=== PATIENT | female | born 1995 | race Caucasian/White ===

== ENCOUNTER 2020-09-03 10:10 | Outpatient (CLI) | payer MEDICAID, SELFPAY ==
[2020-09-03] VITALS (18 sets, daily range): BP systolic 101–124; BP diastolic 57–80; PULSE 52–76; RESP 15; TEMP 36.6; BMI 26.7
--- NOTE | 2020-09-03 10:49 | USR_ITS ---
PROCEDURE INFORMATION: Exam: US , Limited Exam date and time: 09/03/2020 10:55 AM Age: 25 years old Clinical indication: Lmp or gestational age (in weeks): 36 weeks 6 days; Other: Vaginal bleeding/ cramping; ; Additional info: Vaginal bleeding/cramping TECHNIQUE: Imaging protocol: Real-time ultrasound of the maternal uterus with image documentation. Exam focused on the clinical indication. COMPARISON: US OB >= 14 weeks fetus [id number] 05/09/2020 10:19 AM FINDINGS: Gestation: Single viable intrauterine fetus in the vertex presentation. heart rate: heart rate equals 131 BPM. Placenta: A grade 2 placenta is located anteriorly with no evidence of abruption or previa. Amniotic fluid: The amniotic fluid volume is normal for the gestational age. MATERNAL: Cervix: The cervix is closed and measures 4.3 cm in length. US/US OB limited [id number] IMPRESSION: 1. Single viable intrauterine fetus in the vertex position. 2. Grade 2 placenta located anteriorly with no evidence of previa or abruption. 3. Normal amniotic fluid volume.
[2020-09-03 13:59] LABS: Add Urine Microscopic? YES; Bilirubin Urine Neg (Negative); Blood Urine 3+ (Negative); Glucose Urine UA Norm (Normal); Ketones Urine Negative (Negative); Leukocyte Esterase Urine 1+ (Negative); Nitrate Urine Negative (Negative); Protein Urine 1+ (Negative); Specific Gravity, Urine 1.005 (1.005-1.030); Urine Appearance Bloody (CLEAR); Urine Color Red (Yellow); Urobilinogen Urine Norm (Negative); pH Urine 7 (5-7)
[2020-09-03 14:00] LABS: RBC Urine TOO NUMEROUS TO CNT /hpf (0-2)
[2020-09-03 14:03] LABS: Bacteria Urine TRACE /hpf; Mucus Urine 1+ /hpf; Squamous Epithelial Cell Urine 0-4 /hpf (0-5)
[2020-09-03 14:04] LABS: Add Urine Culture? Yes
--- NOTE | 2020-09-03 14:58 | PM.HP ---
Providers/Chief Complaint Primary Care Provider: Tiburcio Lee MD Chief Complaint: Bleeding & Cramping History of Present Illness Sivan Lomas is a 25 year old female who is a 6 para 2 with an EDC of 09/25/2020. This patient has had a uneventful course up until this time. Last night, she began cramping a little bit . And this morning when she was up standing she felt something running down her leg and found herself to be bleeding slightly. She then came to [facility] OB department where she was evaluated. She has a history of a low-lying placenta in early ultrasound therefore an ultrasound was done. The ultrasound was noted to have no previa and no obvious bleeding from the placenta. The placenta is a stage II placenta. Urinalysis was pretty nonspecific except for a large amount of blood. It was not a catheterized urine specimen. General vaginal exam demonstrated her to be closed and -2 station but definitely blood in the vaginal vault. There has been no heavy bleeding and no clots passed. Review of Systems Const: Denies: fever(s), chills, change in appetite or fatigue ENMT: Denies: throat pain, dry mouth or nasal congestion Card: Denies: chest pain, palpitations, irregular heart rhythm or edema Resp: Denies: dyspnea, productive cough or non-productive cough GI: Denies: abdominal pain, nausea or vomiting : Reports: vaginal bleeding and pelvic pain (A mild pressure or discomfort in the suprapubic area.); Denies: flank pain, difficulty voiding or dysuria Musc: Denies: neck pain, back pain or extremity pain Neuro: Denies: headache(s), weakness in extremities or sensory changes Psych: Denies: anxiety or depression PFSH Acute Female Reproductive History: : 6 Vitals/I&O/Wt Last Vital Signs Pulse 59 L 09/03/20 14:26 BP 110/76 09/03/20 14:26 Weight last 48 hrs Weight 70.76 kg Physical Exam Const: COMMON NORMALS: no acute distress, average body habitus and healthy appearing GENERAL APPEARANCE: cooperative and comfortable HENMT: COMMON NORMALS: moist oral mucous membranes Neck/C-Spine: COMMON NORMALS: full ROM, no lymphadenopathy and supple Resp: COMMON NORMALS: normal respiratory effort, No retractions, No use of accessory muscles and clear to auscultation bilaterally Cardio: COMMON NORMALS: regular rate and regular rhythm GI: COMMON NORMALS: Normal to inspection, nondistended, normoactive bowel sounds present, Soft to palpation and non-tender PALPATION: Yes Tenderness to palpation present (GI) Details: other (Mild tenderness in the suprapubic area to palpation.) : SPECULUM EXAM - CERVIX: Yes Cervical os closed (Per nurse examination.) Back/Pelvis: COMMON NORMALS: no CVA tenderness Extremity: COMMON NORMALS: normal to inspection, full ROM, capillary refill normal and no pedal edema Neuro: COMMON NORMALS: CN's II-XII intact bilaterally, moves all extremities, no focal motor deficits and no sensory deficits noted SENSORIUM/ORIENTATION: Yes alert, Yes oriented to person, Yes oriented to place and Yes oriented to time Psych: COMMON NORMALS: mental status grossly normal, Normal thought process present, cooperative and normal affect Skin: COMMON NORMALS: no rashes or lesions noted A&P Assessment and plan (1) Vaginal bleeding during , antepartum: Patient is continue to bleed a small amount. She has some suprapubic pressure and is chico every 4 to 6 minutes and feeling most of them now. There is a possibility that this is early labor. She does have a history of 2 previous babies born just a few weeks early. However, we are still unsure as to whether this is early labor or another cause for bleeding. For this reason, we will keep the patient in the hospital at this time for monitoring closely. If the bleeding increases in amount and/or she has a lot more pain in her pelvis will probably proceed with section. We will go ahead and check a CBC with a metabolic panel. She is known to be A negative blood type. If the bleeding slows or clears, will probably allow her to go home if everything is still stable and the baby looks good. Status: Acute (2) uterine contractions: She is 36 weeks and 6 days gestation. At this time, we will do nothing to stop the labor if she is an active labor. Status: Acute Attestations Medical Necessity Statement*: This patient has an approximately 37-week intrauterine and is bleeding vaginally. This will require at least an observation stay to monitor her for problems such as early labor versus partial abruption causing labor. She will require monitoring until this resolves or if she delivers the baby. Time Spent in Patient Care: 16 - 35 minutes Coding Level of Care Code Acute Mailroom Manager for Chg Fwd Diagnoses Vaginal bleeding during , antepartum O46.90 uterine contractions O47.9
[2020-09-03 16:16] LABS: Basophils # 0.1 10^3/uL (0.0-0.1); Basophils % 0.3 %; Eosinophils # 0.2 10^3/uL (0.0-0.8); Eosinophils % 1.1 %; Hematocrit 28.4 % (37.0-47.0); Hemoglobin 9.4 g/dL (11.5-15.3); Lymphocytes # 2.6 10^3/uL (0.8-4.8); Mean Corpuscular HGB Conc 33.1 g/dL (30.0-36.0); Mean Corpuscular Hemoglobin 30.6 pg (28.0-34.0); Mean Corpuscular Volume 92.5 fL (81-99); Mean Platelet Volume 10.8 fL (7.4-10.4); Monocytes # 0.6 10^3/uL (0.2-0.9); Monocytes % 4.1 %; Neutrophils # 10.98 10^3/uL (1.8-7.7); Neutrophils % 76.2 %; Nucleated Red Blood Cells % 0 %; Platelet Count 259 10^3/cmm (130-400); Red Blood Count 3.07 10^6/uL (4.1-5.3); Red Cell Distribution Width 12.8 % (12.1-15.1); White Blood Count 14.4 10^3/uL (4.0-10.0)
[2020-09-03 16:33] LABS: Alanine Aminotransferase < 5 U/L (0-33); Albumin Level 3.4 g/dL (3.5-5.2); Alkaline Phosphatase 112 IU/L (35-105); Anion Gap 15.6 (5-19); Aspartate Amino Transferase 17 U/L (0-32); Blood Urea Nitrogen 5 mg/dL (6-20); Calcium 7.7 mg/dL (8.5-10.5); Carbon Dioxide 21 mmol/L (22-29); Chloride 105 mmol/L (98-107); Glomerular Filtration Rate 266.9 mL/min (90-130); Glucose 67 mg/dL (65-115); Osmolality Calculated 282 mOsm/kg (285-295); Potassium 3.6 mmol/L (3.5-5.1); Sodium 138 mmol/L (136-145); Total Bilirubin 0.5 mg/dL (0.15-1.2); Total Protein 6.4 g/dL (6.6-8.7)
[2020-09-03] MEDS: sertraline 50 mg Tablet 25 MG PO (18:54)
== END 2020-09-03 18:58 | disposition home or self-care (01) ==
LOC: OPOB 10:16 → OBGYN 10:16
PROVIDERS: Family Medicine; PCP Family Medicine; Visit Provider Family Medicine
DX: O46.93 Antepartum hemorrhage, unspecified, third trimester (principal); Z3A.36 36 weeks gestation of pregnancy; O47.9 False labor, unspecified
CPT/HCPCS: 36415; 59025; 76815; 80053; 81001; 85025; 87086; 96360; 99211

== ENCOUNTER 2020-09-07 01:50 | Inpatient (IN) | payer MEDICAID, SELFPAY ==
[2020-09-07] VITALS (66 sets, daily range): BP systolic 100–135; BP diastolic 55–88; PULSE 51–99; RESP 15–17; TEMP 36.5–36.8; O2SAT 91–100; BMI 26.4
[2020-09-07] MEDS: lactated ringers 1,000 ML 999 ML IV ×2 (02:10→03:15)
[2020-09-07 02:20] LABS: Basophils % 0.3 %; Eosinophils # 0.2 10^3/uL (0.0-0.8); Eosinophils % 1.6 %; Hematocrit 27.5 % (37.0-47.0); Lymphocytes # 2.2 10^3/uL (0.8-4.8); Lymphocytes % 19.5 %; Mean Corpuscular HGB Conc 32.7 g/dL (30.0-36.0); Mean Corpuscular Hemoglobin 30.4 pg (28.0-34.0); Mean Corpuscular Volume 92.9 fL (81-99); Monocytes # 0.5 10^3/uL (0.2-0.9); Monocytes % 4.5 %; Neutrophils # 8.45 10^3/uL (1.8-7.7); Neutrophils % 73.8 %; Nucleated Red Blood Cells % 0 %; Platelet Count 265 10^3/cmm (130-400); Red Blood Count 2.96 10^6/uL (4.1-5.3); Red Cell Distribution Width 12.6 % (12.1-15.1); White Blood Count 11.5 10^3/uL (4.0-10.0)
--- NOTE | 2020-09-07 03:55 | P.ANESASSM_ITS ---
Pre-Anesthetic Assessment Pre-Anesthetic Assessment: Height/Weight: Height 1.63 m Weight 69.853 kg Temp Pulse Resp BP Pulse Ox 97.7 F 62 15 118/81 100 09/07/20 01:34 09/07/20 03:52 09/07/20 02:00 09/07/20 03:51 09/07/20 03:52 Preop Diagnosis: Active Labor Proposed Procedure: Epidural Was Beta Arturo taken within 24 hours: N/A Was Clonidine taken within 24 hours: N/A Social: Social History: No alcohol and No tobacco Exam: Pre-Anes Outpt Exam: alert, oriented x 3 and clear to auscultation bilaterally Airway: Submandibular: WNL Cervical ROM: WNL MP: 2 History/ROS: No significant history except as noted Pulmonary: Pulmonary: None reported CV/HEM: CV/HEM: None reported : : None reported Hepatic: Hepatic: None reported GI: GI: None reported Metabolic: Metabolic: None reported Musc/skel: Musc/skel: None reported Neuropsych: Neuropsych: None reported Anesthetic Plan: ASA status: 2 Anesthesia: Eval. for regional block Risk of > 500 ml blood loss (7ml/kg in children): No Meds/Allergies Current Medications: Current Medications Generic Name Dose Route Start Last Admin Trade Name Freq PRN Reason Stop Dose Admin Lactated Ringer's 1,000 mls @ 999 m ls/hr 09/07/20 01:53 09/07/20 02:10 Lactated Ringers IV 999 mls/hr .Q1H1M PRN Administration See label comment s PFSH Anesthesia Female Reproductive History: : 6 Data Anesthesia CBC & Chem 7: 09/07/20 02:00 Other Labs: Laboratory Results - last 48 hr 09/07/20 02:00 WBC 11.5 H RBC 2.96 L Hgb 9.0 L Hct 27.5 L MCV 92.9 MCH 30.4 MCHC 32.7 RDW 12.6 Plt Count 265 MPV 11.0 H Neut % (Auto) 73.8 Lymph % (Auto) 19.5 Ashley % (Auto) 4.5 Eos % (Auto) 1.6 Baso % (Auto) 0.3 Neut # (Auto) 8.45 H Lymph # (Auto) 2.2 Ashley # (Auto) 0.5 Eos # (Auto) 0.2 Baso # (Auto) 0.0 Nucleated RBC % (auto) 0 Nucleated RBCs # 0.0 Cardiac Studies: No Data to Display
--- NOTE | 2020-09-07 03:58 | ANES.PROC ---
Anesthesia Procedures Procedure/Date: 09/07/20 Epidural: Time Out Performed: Yes Consents Signed: Procedure Consent Consent: requested by attending/covering physician, from patient, risks and benefits reviewed and patient agrees to proceed Lumbar Level: L2-L3 Epidural position: sitting Epidural procedure: sterile prep of area, 1% lidocaine to numb the area, negative for paresthesia passed, test dose given, 1.5% xylocaine 1:200k epi, 0.2% Ropivacaine bolus ml (5ml), no systemic response, sterile dressing applied, L.U.D. no apparent complications and 0.2% Ropiavacaine @ mls/hr (11) Additional Comments: VIN at 6 cm catheter threaded to 12
[2020-09-07] MEDS: dextrose 5%-lactated ringers 1,000 ML 125 ML IV (05:00)
--- NOTE | 2020-09-07 07:13 | P.PCNOB_ITS ---
Delivery Note: Date of delivery: September 07, 2020 Pre-delivery diagnoses: 25-year-old 6 para 2-0-4-2 at 37 weeks estimated gestational age presenting in active labor Post-delivery diagnoses: Status post spontaneous vaginal delivery Procedure: Spontaneous vaginal delivery Op report anesthesia: Epidural Delivering Physician: Tiburcio Lee Estimated blood loss (mL): 150 Pre-Delivery Course: The patient arrived to the hospital the morning of delivery. She was an active labor. Her membrane was intact. An epidural was placed. An amniotomy was performed. She then progressed to complete about 20 minutes after the amniotomy. heart tones were reassuring throughout. The mother had an unremarkable . Her blood type was A-. She was GBS negative. Covid status is unknown. Hepatitis B was negative. The remainder of her labs were within normal limits. Delivery: DELIVERY: The patient progressed to complete without difficulty. She delivered a male with a weight of 6 pounds 5 ounces with Apgars of 9, 9. The baby was delivered from the YOANDY position and placed on the mother's abdomen. The cord was then clamped and cut 1 minute after delivery. There was no nuchal cord. There was no meconium. The placenta and 3 vessel cord were delivered intact shortly thereafter. The perineum and vaginal vault were carefully examined. No lacerations were noted. Both the mother and the baby were in stable condition. Post-Delivery Status: Good Coding Level of Care Code Acute Drophammer Operator for Alex Flower
[2020-09-07] MEDS: sertraline 50 mg Tablet 25 MG PO (09:38)
[2020-09-07] MEDS: docusate sodium 100 mg Capsule PO ×2 (09:38→17:34)
[2020-09-07] MEDS: prenatal vitamin Capsule 1 CAP PO (09:38)
[2020-09-07] MEDS: ibuprofen 800 mg tablet PO ×3 (09:38→21:21)
--- NOTE | 2020-09-07 10:39 | PC.NURSE ---
Pt up to bathroom, large void. Pt then to shower for michael care. Clean pad/gown provided. Bed linens changed. Pt back into bed. Fresh ice water and snacks provided.
[2020-09-07] MEDS: HYDROcodone-acetaminophen 5-325 mg Tablet PO (16:06)
[2020-09-08 00:58] LABS: Hematocrit 23.9 % (37.0-47.0); Hemoglobin 7.8 g/dL (11.5-15.3); Mean Corpuscular HGB Conc 32.6 g/dL (30.0-36.0); Mean Corpuscular Hemoglobin 30.6 pg (28.0-34.0); Mean Corpuscular Volume 93.7 fL (81-99); Mean Platelet Volume 10.6 fL (7.4-10.4); Platelet Count 256 10^3/cmm (130-400); Red Blood Count 2.55 10^6/uL (4.1-5.3); Red Cell Distribution Width 12.8 % (12.1-15.1); White Blood Count 12.5 10^3/uL (4.0-10.0)
[2020-09-08 06:19] VITALS: BP 119/82; PULSE 61
[2020-09-08] MEDS: HYDROcodone-acetaminophen 5-325 mg Tablet PO (07:36)
[2020-09-08] MEDS: ibuprofen 800 mg tablet PO (08:54)
[2020-09-08] MEDS: prenatal vitamin Capsule 1 CAP PO (08:54)
[2020-09-08] MEDS: docusate sodium 100 mg Capsule PO (08:55)
[2020-09-08 10:17] VITALS: BP 138/78; PULSE 65
[2020-09-08 10:18] VITALS: RESP 16; TEMP 36.7; O2SAT 99
--- NOTE | 2020-09-08 18:11 | P.DS_ITS ---
Discharge Providers DIRECTOR OF PREMIUM SEAT SALES Date of Admission: 09/07/20 01:50 Date of Discharge: 09/08/20 Attending Provider at Admission: Tiburcio Lee MD Attending Provider at Discharge: Tiburcio Lee MD Primary Care Provider: Tiburcio Lee MD Diagnoses at Discharge Discharge Diagnosis (1) 37 weeks gestation of : Status: Acute (2) Spontaneous vaginal delivery: Status: Acute Reason for Visit Reason for Visit: Contractions Hospital Course Hospital Course The patient presented for an epidural was placed. An amniotomy was performed. She then progressed to complete and had an unremarkable delivery of a healthy appearing male infant. Her course was unremarkable. Her bleeding was within normal limits. She bottle-fed her infant. There were no concerns. Information Peripartum Data: Infant Delivery Method: Vaginal Physical Exam Narrative: EXAM NARRATIVE: The patient is alert. She appears comfortable. Her heart has a regular rate and rhythm with no murmurs appreciated. Lungs are clear to auscultation bilaterally. Her fundus is firm and below the umbilicus. Urinary Catheter Management^: Cote Latex: Cath Placed During This Visit: yes, but has since been removed by the nurse Reason for Continuing Indwelling Catheter: Other Urinary Catheter Date of Insertion: 09/07/20 Urinary Catheter Time of Insertion: 04:43 Date Urinary Catheter Removed: 09/07/20 Time Urinary Catheter Discontinued: 06:56 Discharge Data Data Completed and Pending: Labs from last 24 hours 09/08/20 00:45 WBC 12.5 H RBC 2.55 L Hgb 7.8 L Hct 23.9 L MCV 93.7 MCH 30.6 MCHC 32.6 RDW 12.8 Plt Count 256 MPV 10.6 H Vitals: Last Vital Signs Temp 98.1 F 09/08/20 10:18 Pulse 65 09/08/20 10:17 Resp 16 09/08/20 10:18 BP 138/78 09/08/20 10:17 Pulse Ox 99 09/08/20 10:18 Discharge Plan Discharge Patient Disposition: Home Condition: Stable Prescriptions: New ibuprofen 800 mg Tablet 800 mg PO TID Qty: 30 RF: 0 Continued Zoloft 25 mg Tablet 25 mg PO DAILY RF: 0 + DHA 28 mg iron- 975 mcg-200 mg Combo Pack 1 pkg PO DAILY RF: 0 Discharge Orders: Discharge Order (Routine); Ordered 09/08/20 Ordered By: Tiburcio Lee Referrals: Edwin Cobian MD [Physician] - 10/03/20 2:45 pm (Tubal ligation 6 weeks ) Tiburcio Lee MD [Primary Care Provider] - 10/20/20 1:30 pm Discharge Diet: Usual diet Discharge Activity: Limit activity as instructed Patient Instructions: Bottle Feeding Your Baby (GEN), Vaginal Delivery (DC), Pre-eclampsia and Eclampsia (GEN), OB Discharge Report, OB Food/Drug Interaction Guide, Opioid Safety, Abnormal Bleeding, Depression Discharge Attestations DIRECTOR OF PREMIUM SEAT SALES Time Spent in Discharge Care*: less than 30 min Coding Level of Care Code Acute Telemarketer Supervisor for Chg Fwd Diagnoses 37 weeks gestation of Z3A.37 Spontaneous vaginal delivery O80
== END 2020-09-08 13:10 | disposition home or self-care (01) | DRG 807 ==
PROVIDERS: Admitting Provider Family Medicine; PCP Family Medicine; Visit Provider Family Medicine
DX: O80 Encounter for full-term uncomplicated delivery (principal); Z37.0 Single live birth; Z3A.37 37 weeks gestation of pregnancy
CPT/HCPCS: 12345; 36415; 51702; 59025; 59409; 85025; 85027; 99211

== ENCOUNTER 2023-10-04 12:26 | Outpatient (CLI) | payer MEDICAID, SELFPAY ==
--- NOTE | 2023-10-04 12:37 | CT_ITS ---
WS: [id number] NONCONTRAST CT RIGHT KNEE TECHNIQUE: Noncontrast CT RIGHT knee with coronal and sagittal reformatted images. CLINICAL INFORMATION: RT KNEE PAIN M25.569 COMPARISON: Radiograph 09/06/2023 DLP: 465.[address] scans at [facility] use at least one of these dose optimization techniques: automated e xposure control; mA and/or kV adjustment per patient size (includes targeted exams where dose is matc hed to clinical indication); or iterative reconstruction. FINDINGS: Prior radiograph reviewed. Tiny transverse lucency with surrounding sclerosis with slight cortical step-off involving the inferi or aspect of the patella corresponding to the radiographic findings suspicious for healing tiny valdez la fracture. Small amount of residual lucency along the lateral aspect. No significant joint effusion . Distal quadriceps and patella tendons appear intact. Normal femoral condyles and tibial plateau. Fi bula head is normal. Normal popliteal fossa. CT/CT knee RT wo con* [id number] IMPRESSION: 1. Suspected healing subacute inferior patellar pole fracture with marginal sc lerosis and some residual lucency. No displacement. 2. No other acute findings. 3. No significant joint effusion.
== END 2023-10-04 12:27 | disposition home or self-care (01) ==
PROVIDERS: PCP Family Medicine; Visit Provider Family Medicine
DX: M25.561 Pain in right knee (principal); R93.6 Abnormal findings on diagnostic imaging of limbs
CPT/HCPCS: 73700